=== PATIENT | female | born 1940 | race African-American/Black ===

== ENCOUNTER → 2017-06-12 | Outpatient (CLI) | payer MEDICARE ==
[~2017-06-12] MED LIST: ATOR20TA65 PO; CELE200C PO; FOLI-43 PO; HYDR200T35 PO; METH2.5T PO; RANI300T4 PO; ZOLP5TAB8 PO
== END | disposition home or self-care (01) ==
LOC: MAMMO 07:51
PROVIDERS: ATTEND Internal Medicine Endocrinology, Diabetes & Metabolism
DX: Z12.31 Encounter for screening mammogram for malignant neoplasm of breast (principal)
CPT/HCPCS: G0202

== ENCOUNTER 2017-06-22 18:47 | Emergency (ER) | payer MEDICARE ==
[~2017-06-22] VITALS: Ht 165.1 cm; Wt 84.0 kg
[2017-06-22] MEDS ORDERED: TETRACAINE 0.5% OPHTH DROPS 4ML OP ONE (23:15)
[2017-06-22] MEDS ORDERED: FLUORESCEIN SODIUM 1MG/STRIP OP ONE (23:15)
[2017-06-23] MEDS ORDERED: ACYCLOVIR 400 MG TABLET PO ONE (00:15)
[2017-06-23 00:43] VITALS: BP 131/75
== END 2017-06-23 00:50 | disposition home or self-care (01) ==
LOC: ER 23:21
DX: B02.8 Zoster with other complications (principal); M19.90 Unspecified osteoarthritis, unspecified site; I10 Essential (primary) hypertension; Z90.49 Acquired absence of other specified parts of digestive tract; Z90.710 Acquired absence of both cervix and uterus
CPT/HCPCS: 99284

== ENCOUNTER 2018-10-03 10:18 | Inpatient (IN) | payer MEDICARE ==
[~2018-10-03] VITALS: Ht 165.1 cm; Wt 89.8 kg
[2018-10-03] MEDS ORDERED: NITROGLYCERIN 0.4MG TABLET SL SL PRN ×2 (11:00→17:30)
[2018-10-03] MEDS ORDERED: ASPIRIN 81MG TABLET PO ONE (11:00)
[2018-10-03 11:50] LABS: BASOPHILS % 0.5 % (0.0-2.0); EOSINOPHILS % 4.4 % (0.0-5.0); HEMATOCRIT. 36.4 % (36.0-48.0); HEMOGLOBIN. 11.4 g/dL (12.0-16.0); LYMPHOCYTES % 26.1 % (20.0-50.0); MEAN CORPUSCULAR HEMOGLOBIN 24.4 pg (28.0-32.0); MEAN PLATELET VOLUME 8.9 fl (7.4-10.4); MONOCYTES % 13.1 % (2.0-8.0); NEUTROPHILS % 55.9 % (40.0-76.0); PLATELET 181 x1000/uL (130-400); RED BLOOD CELL COUNT 4.66 mill/uL (4.2-5.4); RED CELL DISTRIBUTION WIDTH 17.8 % (11.6-14.6)
[2018-10-03 11:58] LABS: CHLORIDE 111 mEq/L (98-107)
[2018-10-03 12:30] LABS: D-DIMER 5.63 mg/L FEU (<0.50); INR 1.1; PROTHROMBIN TIME 10.7 sec (9.1-11.1)
[2018-10-03 16:00] VITALS: BP 149/93
[2018-10-03 16:22] VITALS: BP 149/93
[2018-10-03] MEDS ORDERED: COR3 PO (17:11)
[2018-10-03] MEDS ORDERED: ASPI-1159 PO (17:11)
[2018-10-03] MEDS ORDERED: OXYB5SYR2 PO (17:11)
[2018-10-03] MEDS ORDERED: AM10 PO (17:12)
[2018-10-03] MEDS ORDERED: ACETAMINOPHEN 325MG TABLET PO PRN (17:30)
[2018-10-03] MEDS ORDERED: HYDROCODONE/ACETAMINOPHEN 5/325MG TABLET PO PRN (17:30)
[2018-10-03] MEDS ORDERED: CLONIDINE 0.1MG TABLET PO PRN (17:30)
[2018-10-03] MEDS ORDERED: IPRATROPIUM/ALBUTEROL 0.5-3(2.5)MG/3ML NEB INH PRN (17:30)
[2018-10-03] MEDS ORDERED: ONDANSETRON HCL 4MG/2ML INJ IV PRN (17:30)
[2018-10-03] MEDS ORDERED: HYDROMORPHONE HCL/PF 2MG/ML CPJ IV PRN (17:30)
[2018-10-03] MEDS ORDERED: ENOXAPARIN 40MG/0.4ML SYR SUBCUT SCH (18:30)
[2018-10-03] MEDS: METOPROLOL TARTRATE 25MG TABLET PO SCH (19:25)
[2018-10-03 20:46] VITALS: BP 120/72
[2018-10-04 00:12] VITALS: BP 147/80
[2018-10-04 01:07] LABS: CREATINE KINASE 30 IU/L (26-192)
[2018-10-04 01:08] LABS: CREATINE KINASE MB FRACTION < 1.0 ng/mL (0.5-3.6)
[2018-10-04 04:09] VITALS: BP 138/87
[2018-10-04 07:34] LABS: BASOPHILS % 0.8 % (0.0-2.0); EOSINOPHILS % 4.5 % (0.0-5.0); HEMATOCRIT. 37.9 % (36.0-48.0); LYMPHOCYTES % 39.8 % (20.0-50.0); MEAN CORPUSCULAR HEMOGLOBIN 24.6 pg (28.0-32.0); MEAN CORPUSCULAR VOLUME 77.5 fL (81.0-99.0); MEAN PLATELET VOLUME 9.2 fl (7.4-10.4); MONOCYTES % 12.1 % (2.0-8.0); NEUTROPHILS % 42.8 % (40.0-76.0); PLATELET 202 x1000/uL (130-400); RED BLOOD CELL COUNT 4.89 mill/uL (4.2-5.4)
[2018-10-04 07:55] LABS: CHLORIDE 109 mEq/L (98-107)
[2018-10-04 08:19] LABS: LDL CHOLESTEROL 66 mg/dL (5-100)
[2018-10-04 08:21] LABS: CREATINE KINASE 35 IU/L (26-192); CREATINE KINASE MB FRACTION < 1.0 ng/mL (0.5-3.6); HDL CHOLESTEROL 58 mg/dL (40-59)
[2018-10-04 08:22] LABS: T4 FREE 1.49 ng/dL (0.76-1.46)
[2018-10-04] MEDS: METOPROLOL TARTRATE 25MG TABLET PO SCH ×2 (08:33→20:56)
[2018-10-04] MEDS: ASPIRIN 81MG EC TABLET PO SCH (08:33)
[2018-10-04 08:49] VITALS: BP 144/72
[2018-10-04] MEDS: FAMOTIDINE 20MG TABLET PO SCH (11:45)
[2018-10-04] MEDS: CARVEDILOL 3.125 MG TABLET PO SCH ×2 (11:45→20:56)
[2018-10-04] MEDS: CELECOXIB 200MG CAPSULE PO SCH (11:45)
[2018-10-04] MEDS: AMITRIPTYLINE 10MG TABLET PO SCH (11:45)
[2018-10-04 12:00] VITALS: BP 112/65
[2018-10-04 16:00] VITALS: BP 113/64
[2018-10-04 20:00] VITALS: BP 120/72
[2018-10-04] MEDS: ATORVASTATIN CALCIUM 20MG TABLET PO SCH (20:55)
[2018-10-04] MEDS: OXYBUTYNIN CHLORIDE 5MG TABLET PO SCH (20:55)
[2018-10-04] MEDS: ENOXAPARIN 30MG/0.3ML SYR SUBCUT SCH (20:56)
[2018-10-05] VITALS: BP 114/76
[2018-10-05 04:00] VITALS: BP 123/71
[2018-10-05 08:00] VITALS: BP 134/65
[2018-10-05] MEDS: OXYBUTYNIN CHLORIDE 5MG TABLET PO SCH ×2 (08:57→21:21)
[2018-10-05] MEDS: METOPROLOL TARTRATE 25MG TABLET PO SCH ×2 (08:57→21:23)
[2018-10-05] MEDS: FAMOTIDINE 20MG TABLET PO SCH (08:57)
[2018-10-05] MEDS: ASPIRIN 81MG EC TABLET PO SCH (08:57)
[2018-10-05] MEDS: CELECOXIB 200MG CAPSULE PO SCH (08:57)
[2018-10-05] MEDS: AMITRIPTYLINE 10MG TABLET PO SCH (08:58)
[2018-10-05] MEDS: ENOXAPARIN 30MG/0.3ML SYR SUBCUT SCH ×2 (08:58→21:24)
[2018-10-05] MEDS: CARVEDILOL 3.125 MG TABLET PO SCH ×2 (08:58→21:21)
[2018-10-05] MEDS ORDERED: REGADENOSON 0.4 MG/5 ML IV ONE (11:45)
[2018-10-05 12:00] VITALS: BP 104/64
[2018-10-05] MEDS: TRIAMTERENE/HYDROCHLOROTHIAZID 75/50MG TABLET PO SCH (12:41)
[2018-10-05 16:00] VITALS: BP 124/59
[2018-10-05 20:00] VITALS: BP 121/54
[2018-10-05] MEDS: ATORVASTATIN CALCIUM 20MG TABLET PO SCH (21:22)
[2018-10-06] VITALS: BP 113/63
[2018-10-06 04:00] VITALS: BP 121/44
[2018-10-06 07:09] LABS: BASOPHILS % 0.6 % (0.0-2.0); HEMATOCRIT. 34.1 % (36.0-48.0); HEMOGLOBIN. 11.1 g/dL (12.0-16.0); LYMPHOCYTES % 32.4 % (20.0-50.0); MEAN CORPUSCULAR HEMOGLOBIN 25.1 pg (28.0-32.0); MEAN CORPUSCULAR VOLUME 77.2 fL (81.0-99.0); PLATELET 175 x1000/uL (130-400); RED BLOOD CELL COUNT 4.41 mill/uL (4.2-5.4); RED CELL DISTRIBUTION WIDTH 17.6 % (11.6-14.6)
[2018-10-06 07:15] LABS: CHLORIDE 110 mEq/L (98-107)
[2018-10-06 08:00] VITALS: BP 127/62
[2018-10-06] MEDS: CARVEDILOL 3.125 MG TABLET PO SCH (09:30)
[2018-10-06] MEDS: CELECOXIB 200MG CAPSULE PO SCH (09:30)
[2018-10-06] MEDS: ASPIRIN 81MG EC TABLET PO SCH (09:30)
[2018-10-06] MEDS: TRIAMTERENE/HYDROCHLOROTHIAZID 75/50MG TABLET PO SCH (09:30)
[2018-10-06] MEDS: FAMOTIDINE 20MG TABLET PO SCH (09:30)
[2018-10-06] MEDS: OXYBUTYNIN CHLORIDE 5MG TABLET PO SCH ×2 (09:30→20:45)
[2018-10-06] MEDS: AMITRIPTYLINE 10MG TABLET PO SCH (09:31)
[2018-10-06] MEDS: ENOXAPARIN 30MG/0.3ML SYR SUBCUT SCH ×2 (09:31→20:45)
[2018-10-06] MEDS: METOPROLOL TARTRATE 25MG TABLET PO SCH ×2 (09:31→20:46)
[2018-10-06] MEDS ORDERED: REGADENOSON 0.4 MG/5 ML IV ONE (12:12)
[2018-10-06 16:00] VITALS: BP 130/71
[2018-10-06 20:00] VITALS: BP 133/77
[2018-10-06] MEDS: ATORVASTATIN CALCIUM 20MG TABLET PO SCH (20:45)
[2018-10-07] VITALS: BP 101/68
[2018-10-07 04:00] VITALS: BP 136/65
[2018-10-07 07:05] LABS: HEMATOCRIT. 36.8 % (36.0-48.0); HEMOGLOBIN. 11.8 g/dL (12.0-16.0); MEAN CORPUSCULAR HEMOGLOBIN 24.8 pg (28.0-32.0); MEAN CORPUSCULAR VOLUME 77.7 fL (81.0-99.0); MEAN PLATELET VOLUME 8.8 fl (7.4-10.4); PLATELET 180 x1000/uL (130-400); RED BLOOD CELL COUNT 4.74 mill/uL (4.2-5.4); RED CELL DISTRIBUTION WIDTH 17.5 % (11.6-14.6)
[2018-10-07 07:08] LABS: CHLORIDE 110 mEq/L (98-107)
[2018-10-07] MEDS: TRIAMTERENE/HYDROCHLOROTHIAZID 75/50MG TABLET PO SCH (09:00)
[2018-10-07] MEDS: METOPROLOL TARTRATE 25MG TABLET PO SCH (09:00)
[2018-10-07] MEDS: AMITRIPTYLINE 10MG TABLET PO SCH (09:08)
[2018-10-07] MEDS: FAMOTIDINE 20MG TABLET PO SCH (09:09)
[2018-10-07] MEDS: OXYBUTYNIN CHLORIDE 5MG TABLET PO SCH (09:10)
[2018-10-07] MEDS: ASPIRIN 81MG EC TABLET PO SCH (09:10)
[2018-10-07] MEDS: ENOXAPARIN 30MG/0.3ML SYR SUBCUT SCH (09:12)
[2018-10-07] MEDS: CELECOXIB 200MG CAPSULE PO SCH (09:19)
[2018-10-07 09:50] VITALS: BP 101/69
[2018-10-07 12:03] VITALS: BP 95/68
[2018-10-07 15:07] VITALS: BP 121/62
[2018-10-07 15:58] VITALS: BP 121/62
[2018-10-07 16:06] LABS: PLATELET ESTIMATE NORMAL
== END 2018-10-07 16:17 | disposition home or self-care (01) | DRG 206 ==
LOC: ER 10:42 → 6WST 12:54 → EDBEDREQTM 12:56 → EDBEDREQ 12:56 → ENRESERV 13:55
PROVIDERS: ADMIT Hospitalist; ATTEND Hospitalist
DX: M94.0 Chondrocostal junction syndrome [Tietze] (principal); I48.1 Persistent atrial fibrillation; E44.1 Mild protein-calorie malnutrition; R07.89 Other chest pain; I11.0 Hypertensive heart disease with heart failure; E78.5 Hyperlipidemia, unspecified; M19.90 Unspecified osteoarthritis, unspecified site; I50.9 Heart failure, unspecified; I48.2 Chronic atrial fibrillation; Z96.653 Presence of artificial knee joint, bilateral; K21.9 Gastro-esophageal reflux disease without esophagitis; Z79.01 Long term (current) use of anticoagulants; Z90.49 Acquired absence of other specified parts of digestive tract; Z90.710 Acquired absence of both cervix and uterus; Z79.899 Other long term (current) drug therapy; Z86.718 Personal history of other venous thrombosis and embolism; Z68.32 Body mass index [BMI] 32.0-32.9, adult
CPT/HCPCS: 36415; 71045; 78452; 78582; 80048; 80061; 82550; 82553; 83735; 83880; 84439; 84443; 84484; 85379; 93005; 93017; 93306; 93970; 99285; A9500; A9558; J1650; J2785

== ENCOUNTER 2018-11-11 06:50 | Day surgery (SDC) | payer MEDICARE ==
[~2018-11-11] VITALS: Ht 165.1 cm; Wt 86.2 kg
[~2018-11-11 06:50] MED LIST changes: +AM10 PO; +COR3 PO; -HYDR200T35 PO; -METH2.5T PO; +OXYB5SYR2 PO; -ZOLP5TAB8 PO
[2018-11-11] MEDS ORDERED: RIVA20TA MT (07:37)
[2018-11-11] MEDS ORDERED: OMEP40CA34 MT (07:37)
[2018-11-11] MEDS ORDERED: LIDOCAINE HCL 1% 20ML VIAL (Pyxis) INJ ONE (07:38)
[2018-11-11] MEDS ORDERED: IODIXANOL 320MG/ML 100 ML BOTTLE IV ONE (07:38)
[2018-11-11 07:47] LABS: HEMATOCRIT 36.4 % (36.0-48.0); HEMOGLOBIN 11.7 g/dL (12.0-16.0); MEAN CORPUSCULAR HEMOGLOBIN 24.6 pg (28.0-32.0); MEAN CORPUSCULAR VOLUME 76.7 fL (81.0-99.0); PLATELET 189 x1000/uL (130-400); RED BLOOD CELL COUNT 4.74 mill/uL (4.2-5.4); RED CELL DISTRIBUTION WIDTH 18.1 % (11.6-14.6)
[2018-11-11] MEDS ORDERED: ASPIRIN/SOD BICARB/CITRIC ACID 324MG TAB EFF ONE (07:55)
[2018-11-11] MEDS ORDERED: MIDAZOLAM HCL 2 MG/2 ML VIAL ONE (08:07)
[2018-11-11] MEDS ORDERED: FENTANYL CITRATE/PF 50MCG/ML 2ML VIAL ONE (08:07)
[2018-11-11] MEDS ORDERED: ATROPINE SULFATE 1MG/10ML SYR IV PRN (08:45)
[2018-11-11] MEDS ORDERED: ONDANSETRON HCL 4MG/2ML INJ IV PRN (08:45)
[2018-11-11] MEDS ORDERED: MORPHINE SULFATE 4 MG/ML CPJ (NOT FOR IM USE) IV PRN (08:45)
[2018-11-11] MEDS ORDERED: ACETAMINOPHEN 325MG TABLET PO PRN (08:45)
[2018-11-11] MEDS ORDERED: HEPARIN SODIUM 1,000 UNIT/1ML VIAL IV ONE (15:02)
[2018-11-11] MEDS ORDERED: NITROGLYCERIN 50MCG/ML 10ML VIAL (CATH LAB) IV ONE (15:28)
[2018-11-11] MEDS ORDERED: NICARDIPINE 100MCG/ML 10ML VIAL (CATH LAB) IV ONE (15:28)
== END 2018-11-11 13:00 | disposition home or self-care (01) ==
LOC: CCL 06:50
PROVIDERS: ATTEND Specialist
DX: I25.10 Atherosclerotic heart disease of native coronary artery without angina pectoris (principal); I11.0 Hypertensive heart disease with heart failure; I50.9 Heart failure, unspecified; I48.91 Unspecified atrial fibrillation; E78.00 Pure hypercholesterolemia, unspecified; Z90.49 Acquired absence of other specified parts of digestive tract; Z96.653 Presence of artificial knee joint, bilateral; K21.9 Gastro-esophageal reflux disease without esophagitis
CPT/HCPCS: 36415; 85027; 93458; C1769; C1887; C1893; J1644; J2250; J3010; J3490; Q9967

== ENCOUNTER 2024-04-11 22:19 | Inpatient (IN) | payer MEDICARE ==
[~2024-04-11] VITALS: Ht 165.1 cm; Wt 69.4 kg
[2024-04-11 21:15] VITALS: BP 113/54; PULSE 82; RESP 19; TEMP 98.6
[2024-04-11 22:00] VITALS: BP 113/58; PULSE 82; RESP 20; TEMP 98.6
[~2024-04-11 22:19] MED LIST changes: -AM10 PO; -CELE200C PO; -COR3 PO; +COR6 PO; -FOLI-43 PO; +FURO20TA4 MT; +OMEP40CA20 MT; -OXYB5SYR2 PO; +OXYB5SYR6 PO; -RANI300T4 PO; +RIVA20TA MT; +SACU1TAB PO; +SPIR25TA6 PO
[2024-04-11] MEDS ORDERED: HYDROMORPHONE HCL/PF 2MG/ML INJ IV ONE (22:30)
[2024-04-11] MEDS ORDERED: IPRATROPIUM/ALBUTEROL 0.5-3(2.5)MG/3ML NEB HHN PRN (22:30)
[2024-04-11] MEDS ORDERED: ACETAMINOPHEN 325MG TABLET PO PRN (22:30)
[2024-04-11] MEDS ORDERED: MAGNESIUM/ALUMINUM HYDROXIDE/SIMETHICONE 30ML UDC PO PRN (22:30)
[2024-04-11] MEDS ORDERED: HYDROCODONE/ACETAMINOPHEN 5/325MG TABLET PO PRN (22:30)
[2024-04-11] MEDS ORDERED: CLONIDINE 0.1MG TABLET PO PRN (22:30)
[2024-04-11] MEDS ORDERED: NALOXONE HCL 0.4MG/ML 1ML VIAL IV PRN (22:30)
[2024-04-11] MEDS ORDERED: HYDROMORPHONE HCL/PF 2MG/ML INJ IM PRN (22:30)
[2024-04-11] MEDS ORDERED: ONDANSETRON HCL 4MG/2ML INJ IV PRN (22:30)
[2024-04-11] MEDS ORDERED: GUAIFENESIN 200MG/10ML SUGAR FREE UDC PO PRN (22:30)
[2024-04-11] MEDS ORDERED: HYDROMORPHONE HCL/PF 2MG/ML INJ IV PRN (23:15)
[2024-04-12 06:10] LABS: BASOPHILS % 0.5 % (0.0-2.0); EOSINOPHILS % 2.9 % (0.0-5.0); HEMATOCRIT. 24.7 % (36.0-48.0); HEMOGLOBIN. 8.2 g/dL (12.0-16.0); LYMPHOCYTES % 17.7 % (20.0-50.0); MEAN CORPUSCULAR HEMOGLOBIN 28.9 pg (28.0-32.0); MEAN CORPUSCULAR HGB CONC 33.3 g/dL (31.0-37.0); MEAN CORPUSCULAR VOLUME 86.7 fL (81.0-99.0); MEAN PLATELET VOLUME 8.8 fl (7.4-10.4); MONOCYTES % 9.7 % (2.0-8.0); NEUTROPHILS % 69.2 % (40.0-76.0); PLATELET 145 x1000/uL (130-400); RED BLOOD CELL COUNT 2.85 mill/uL (4.2-5.4); RED CELL DISTRIBUTION WIDTH 15.7 % (11.6-14.6); WHITE BLOOD COUNT 6.3 x1000/uL (4.5-11.0)
[2024-04-12 06:16] LABS: CHLORIDE 107 mEq/L (98-107); POTASSIUM 4.3 mEq/L (3.5-5.1); SODIUM 141 mEq/L (136-145)
[2024-04-12 06:17] LABS: CALCIUM 8.3 mg/dL (8.7-10.4); CARBON DIOXIDE 29 mEq/L (21-32)
[2024-04-12 06:22] LABS: CREATININE 0.7 mg/dL (0.6-1.0); GLUCOSE 111 mg/dL (70-105); UREA NITROGEN BLOOD 12 mg/dL (9-23)
[2024-04-12] MEDS: PANTOPRAZOLE 40MG DR TABLET PO SCH (06:23)
[2024-04-12 06:24] LABS: ALANINE AMINOTRANSFERASE 23 IU/L (10-49); ALBUMIN 3.1 g/dL (3.2-4.8); ASPARTATE AMINOTRANSFERASE 39 IU/L (<34); PREALBUMIN 5.6 mg/dl (10.0-40.0); PROTEIN TOTAL 4.9 g/dL (6.0-8.3)
[2024-04-12] MEDS ORDERED: OMEPRAZOLE 20MG CAPSULE EXTENDED RELEASE PO SCH (07:00)
[2024-04-12 08:00] VITALS: BP 149/59; PULSE 70; TEMP 97.4
[2024-04-12] MEDS: OXYBUTYNIN CHLORIDE 5MG TABLET PO SCH (09:13)
[2024-04-12] MEDS: FUROSEMIDE 40MG TABLET PO SCH (09:13)
[2024-04-12] MEDS: ENOXAPARIN 40MG/0.4ML SYR SUBCUT SCH (09:13)
[2024-04-12] MEDS: CARVEDILOL 3.125 MG TABLET PO SCH (09:18)
[2024-04-12] MEDS: NON FORMULARY PATIENT HOME MED XX SCH (09:22)
[2024-04-12 12:00] VITALS: BP 116/49; PULSE 75; RESP 19; TEMP 97.3
[2024-04-12] MEDS: RIVAROXABAN 15 MG TABLET PO SCH (16:01)
[2024-04-12] MEDS: HYDROCODONE/ACETAMINOPHEN 5/325MG TABLET PO PRN (16:02)
[2024-04-12] MEDS: POLYETHYLENE GLYCOL 3350 (17GM) 1 DOSE PACK PO SCH (18:55)
[2024-04-12] MEDS: CYANOCOBALAMIN 1000MCG/ML VIAL IM NR (18:55)
[2024-04-12 20:00] VITALS: BP 123/70; PULSE 90; RESP 18; TEMP 97.5
[2024-04-12] MEDS: ATORVASTATIN CALCIUM 20MG TABLET PO SCH (22:53)
[2024-04-12] MEDS: ENTRESTO PO SCH (22:53)
[2024-04-13 08:00] VITALS: BP 129/53; PULSE 67; RESP 18; TEMP 98.1
[2024-04-13] MEDS: ASCORBIC ACID 500 MG TABLET PO SCH (08:38)
[2024-04-13] MEDS: FERROUS SULFATE 325MG TABLET PO SCH (08:40)
[2024-04-13 09:49] LABS: BASOPHILS % 0.5 % (0.0-2.0); HEMATOCRIT. 25.7 % (36.0-48.0); HEMOGLOBIN. 8.3 g/dL (12.0-16.0); LYMPHOCYTES % 16.2 % (20.0-50.0); MEAN CORPUSCULAR HEMOGLOBIN 28.5 pg (28.0-32.0); MEAN CORPUSCULAR HGB CONC 32.2 g/dL (31.0-37.0); MEAN CORPUSCULAR VOLUME 88.5 fL (81.0-99.0); MEAN PLATELET VOLUME 8.5 fl (7.4-10.4); MONOCYTES % 7.7 % (2.0-8.0); NEUTROPHILS % 72.6 % (40.0-76.0); PLATELET 202 x1000/uL (130-400); RED BLOOD CELL COUNT 2.91 mill/uL (4.2-5.4); RED CELL DISTRIBUTION WIDTH 15.7 % (11.6-14.6); WHITE BLOOD COUNT 5.6 x1000/uL (4.5-11.0)
[2024-04-13 09:54] LABS: CHLORIDE 105 mEq/L (98-107); POTASSIUM 3.9 mEq/L (3.5-5.1); SODIUM 140 mEq/L (136-145)
[2024-04-13 09:55] LABS: CALCIUM 8.9 mg/dL (8.7-10.4); CARBON DIOXIDE 29 mEq/L (21-32)
[2024-04-13 10:00] LABS: CREATININE 0.7 mg/dL (0.6-1.0); GLUCOSE 140 mg/dL (70-105); UREA NITROGEN BLOOD 11 mg/dL (9-23)
[2024-04-13] MEDS: BISACODYL 10MG SUPP PR PRN (12:14)
[2024-04-13 20:00] VITALS: BP 115/52; PULSE 80; RESP 18; TEMP 100
[2024-04-13] MEDS: LACTULOSE 20G/30ML UDC PO SCH (22:22)
[2024-04-14] MEDS: NA PHOS,M-B/NA PHOS,DI-BA ENEMA 118ML PR NR (05:26)
[2024-04-14] MEDS: DOCUSATE SODIUM 100MG CAPSULE PO PRN (06:39)
[2024-04-14] MEDS: ACETAMINOPHEN 325MG TABLET PO PRN (06:57)
[2024-04-14 07:12] LABS: CARBON DIOXIDE 30 mEq/L (21-32); CHLORIDE 105 mEq/L (98-107); POTASSIUM 4.5 mEq/L (3.5-5.1); SODIUM 140 mEq/L (136-145)
[2024-04-14 07:14] LABS: CALCIUM 8.9 mg/dL (8.7-10.4)
[2024-04-14 07:18] LABS: CREATININE 0.6 mg/dL (0.6-1.0); GLUCOSE 98 mg/dL (70-105)
[2024-04-14 07:19] LABS: UREA NITROGEN BLOOD 11 mg/dL (9-23)
[2024-04-14 07:25] LABS: BASOPHILS % 0.3 % (0.0-2.0); EOSINOPHILS % 2.2 % (0.0-5.0); HEMATOCRIT. 26.8 % (36.0-48.0); HEMOGLOBIN. 8.9 g/dL (12.0-16.0); LYMPHOCYTES % 15.9 % (20.0-50.0); MEAN CORPUSCULAR HEMOGLOBIN 29.2 pg (28.0-32.0); MEAN CORPUSCULAR HGB CONC 33.3 g/dL (31.0-37.0); MEAN CORPUSCULAR VOLUME 87.7 fL (81.0-99.0); MEAN PLATELET VOLUME 8.3 fl (7.4-10.4); MONOCYTES % 10.9 % (2.0-8.0); NEUTROPHILS % 70.7 % (40.0-76.0); PLATELET 237 x1000/uL (130-400); RED BLOOD CELL COUNT 3.06 mill/uL (4.2-5.4); RED CELL DISTRIBUTION WIDTH 15.9 % (11.6-14.6); WHITE BLOOD COUNT 7.4 x1000/uL (4.5-11.0)
[2024-04-14 08:00] VITALS: BP 129/67; PULSE 77; RESP 18; TEMP 97.4
[2024-04-14 20:00] VITALS: BP 113/55; PULSE 86; RESP 18; TEMP 98
[2024-04-14] MEDS: ERGOCALCIFEROL 50000UNITS CAPSULE PO SCH (21:54)
[2024-04-15 08:00] VITALS: BP 129/52; PULSE 85; RESP 19; TEMP 97.6
[2024-04-15 20:00] VITALS: BP 140/56; PULSE 82; RESP 18; TEMP 99
[2024-04-16 08:00] VITALS: BP 136/68; PULSE 92; RESP 20; TEMP 98.1
[2024-04-16 08:00] LABS: BASOPHILS % 0.6 % (0.0-2.0); HEMATOCRIT. 27.7 % (36.0-48.0); LYMPHOCYTES % 16.8 % (20.0-50.0); MEAN CORPUSCULAR HEMOGLOBIN 28.8 pg (28.0-32.0); MEAN CORPUSCULAR HGB CONC 32.4 g/dL (31.0-37.0); MEAN CORPUSCULAR VOLUME 88.8 fL (81.0-99.0); MEAN PLATELET VOLUME 7.7 fl (7.4-10.4); MONOCYTES % 10.9 % (2.0-8.0); NEUTROPHILS % 68.7 % (40.0-76.0); PLATELET 339 x1000/uL (130-400); RED BLOOD CELL COUNT 3.12 mill/uL (4.2-5.4); RED CELL DISTRIBUTION WIDTH 16.3 % (11.6-14.6); WHITE BLOOD COUNT 6.5 x1000/uL (4.5-11.0)
[2024-04-16 08:04] LABS: CARBON DIOXIDE 28 mEq/L (21-32); CHLORIDE 106 mEq/L (98-107); POTASSIUM 4.2 mEq/L (3.5-5.1); SODIUM 140 mEq/L (136-145)
[2024-04-16 08:05] LABS: CALCIUM 8.8 mg/dL (8.7-10.4)
[2024-04-16 08:10] LABS: CREATININE 0.6 mg/dL (0.6-1.0); GLUCOSE 107 mg/dL (70-105); UREA NITROGEN BLOOD 12 mg/dL (9-23)
[2024-04-16] MEDS: RIVAROXABAN 20 MG TABLET PO SCH (17:56)
[2024-04-16 20:00] VITALS: BP 118/52; PULSE 76; RESP 19; TEMP 97.3
[2024-04-17 08:00] VITALS: BP 102/49; PULSE 64; RESP 20; TEMP 97.7
[2024-04-17 20:00] VITALS: BP 112/52; PULSE 73; RESP 18; TEMP 98.7
[2024-04-18 08:00] VITALS: BP 123/75; PULSE 76; RESP 18; TEMP 97.6
[2024-04-18] MEDS: FUROSEMIDE 40MG TABLET PO SCH (08:23)
[2024-04-18 20:00] VITALS: BP 110/56; PULSE 73; RESP 18; TEMP 98.4
[2024-04-19 07:36] LABS: CARBON DIOXIDE 27 mEq/L (21-32); CHLORIDE 108 mEq/L (98-107); POTASSIUM 4.2 mEq/L (3.5-5.1); SODIUM 141 mEq/L (136-145)
[2024-04-19 07:37] LABS: CALCIUM 8.7 mg/dL (8.7-10.4)
[2024-04-19 07:41] LABS: CREATININE 0.7 mg/dL (0.6-1.0)
[2024-04-19 07:42] LABS: GLUCOSE 99 mg/dL (70-105); UREA NITROGEN BLOOD 18 mg/dL (9-23)
[2024-04-19 08:00] VITALS: BP 135/72; PULSE 100; RESP 17; TEMP 97.3
[2024-04-19 08:18] LABS: BASOPHILS % 0.4 % (0.0-2.0); EOSINOPHILS % 1.9 % (0.0-5.0); HEMATOCRIT. 26.1 % (36.0-48.0); HEMOGLOBIN. 8.5 g/dL (12.0-16.0); LYMPHOCYTES % 18.2 % (20.0-50.0); MEAN CORPUSCULAR HEMOGLOBIN 28.9 pg (28.0-32.0); MEAN CORPUSCULAR HGB CONC 32.4 g/dL (31.0-37.0); MEAN CORPUSCULAR VOLUME 89.2 fL (81.0-99.0); MEAN PLATELET VOLUME 7.6 fl (7.4-10.4); MONOCYTES % 9.1 % (2.0-8.0); NEUTROPHILS % 70.4 % (40.0-76.0); PLATELET 378 x1000/uL (130-400); RED BLOOD CELL COUNT 2.93 mill/uL (4.2-5.4); RED CELL DISTRIBUTION WIDTH 17.3 % (11.6-14.6); WHITE BLOOD COUNT 6.3 x1000/uL (4.5-11.0)
[2024-04-19] MEDS: FUROSEMIDE 20MG TABLET PO SCH (08:40)
[2024-04-19 20:00] VITALS: BP 114/57; PULSE 98; RESP 18; TEMP 97.4
[2024-04-20 08:00] VITALS: BP 125/49; PULSE 72; RESP 18; TEMP 97.9
[2024-04-20] MEDS ORDERED: IPRATROPIUM/ALBUTEROL 0.5-3(2.5)MG/3ML NEB HHN PRN (14:45)
[2024-04-20 20:00] VITALS: BP 114/37; PULSE 66; RESP 18; TEMP 97.9
[2024-04-21 08:00] VITALS: BP 130/60; PULSE 65; RESP 18; TEMP 97.7
[2024-04-21 20:00] VITALS: BP 114/90; PULSE 72; RESP 18; TEMP 97.8
[2024-04-22 06:47] LABS: BASOPHILS % 0.8 % (0.0-2.0); HEMATOCRIT. 28.7 % (36.0-48.0); LYMPHOCYTES % 16.8 % (20.0-50.0); MEAN CORPUSCULAR HEMOGLOBIN 28.4 pg (28.0-32.0); MEAN CORPUSCULAR HGB CONC 31.4 g/dL (31.0-37.0); MEAN CORPUSCULAR VOLUME 90.6 fL (81.0-99.0); MEAN PLATELET VOLUME 7.4 fl (7.4-10.4); MONOCYTES % 9.3 % (2.0-8.0); NEUTROPHILS % 71.1 % (40.0-76.0); PLATELET 398 x1000/uL (130-400); RED BLOOD CELL COUNT 3.17 mill/uL (4.2-5.4); RED CELL DISTRIBUTION WIDTH 18.2 % (11.6-14.6); WHITE BLOOD COUNT 5.2 x1000/uL (4.5-11.0)
[2024-04-22 06:55] LABS: CARBON DIOXIDE 26 mEq/L (21-32); CHLORIDE 109 mEq/L (98-107); POTASSIUM 4.2 mEq/L (3.5-5.1); SODIUM 141 mEq/L (136-145)
[2024-04-22 06:56] LABS: CALCIUM 8.5 mg/dL (8.7-10.4)
[2024-04-22 07:01] LABS: CREATININE 0.7 mg/dL (0.6-1.0); GLUCOSE 95 mg/dL (70-105); UREA NITROGEN BLOOD 18 mg/dL (9-23)
[2024-04-22 08:00] VITALS: BP 102/53; PULSE 57; RESP 18; TEMP 101.1
[2024-04-22 12:00] VITALS: BP 100/43; PULSE 74; RESP 18; TEMP 98.8
[2024-04-22 16:00] VITALS: BP 99/55; PULSE 78; RESP 20; TEMP 99.6
[2024-04-22 20:00] VITALS: BP 124/54; PULSE 70; RESP 17; TEMP 98.1
[2024-04-23 08:00] VITALS: BP 110/67; PULSE 73; RESP 18; TEMP 98.1
[2024-04-23] MEDS ORDERED: PANT40TA51 PO (15:46)
[2024-04-23] MEDS ORDERED: OXYB5TAB21 PO (15:46)
[2024-04-23] MEDS ORDERED: ESTR42.510 VG (15:46)
[2024-04-23] MEDS ORDERED: FURO20TA4 MT (15:47)
[2024-04-23] MEDS: RIVAROXABAN 15 MG TABLET PO SCH (17:07)
[2024-04-23 20:00] VITALS: BP 110/52; PULSE 75; RESP 18; TEMP 98
[2024-04-24 08:00] VITALS: BP 109/48; PULSE 76; RESP 18; TEMP 97.1
[2024-04-24 20:00] VITALS: BP 106/49; PULSE 67; RESP 18; TEMP 98.2
[2024-04-25 08:00] VITALS: BP 111/51; PULSE 61; RESP 20; TEMP 98.8
[2024-04-25 09:54] VITALS: BP 111/51; PULSE 70; RESP 16; TEMP 98.2
[2024-04-25 20:00] VITALS: BP 116/36; PULSE 60; RESP 18; TEMP 98.4
[2024-04-26 06:53] LABS: CARBON DIOXIDE 28 mEq/L (21-32); CHLORIDE 110 mEq/L (98-107); POTASSIUM 4.5 mEq/L (3.5-5.1); SODIUM 142 mEq/L (136-145)
[2024-04-26 06:56] LABS: BASOPHILS % 0.7 % (0.0-2.0); EOSINOPHILS % 2.3 % (0.0-5.0); HEMATOCRIT. 29.8 % (36.0-48.0); HEMOGLOBIN. 9.7 g/dL (12.0-16.0); LYMPHOCYTES % 27.1 % (20.0-50.0); MEAN CORPUSCULAR HEMOGLOBIN 29.1 pg (28.0-32.0); MEAN CORPUSCULAR HGB CONC 32.5 g/dL (31.0-37.0); MEAN CORPUSCULAR VOLUME 89.6 fL (81.0-99.0); MEAN PLATELET VOLUME 7.7 fl (7.4-10.4); MONOCYTES % 9.3 % (2.0-8.0); NEUTROPHILS % 60.6 % (40.0-76.0); PLATELET 389 x1000/uL (130-400); RED BLOOD CELL COUNT 3.33 mill/uL (4.2-5.4); RED CELL DISTRIBUTION WIDTH 18.2 % (11.6-14.6); WHITE BLOOD COUNT 4.1 x1000/uL (4.5-11.0)
[2024-04-26 06:59] LABS: CREATININE 0.7 mg/dL (0.6-1.0); GLUCOSE 101 mg/dL (70-105); UREA NITROGEN BLOOD 19 mg/dL (9-23)
[2024-04-26 08:00] VITALS: BP 143/61; PULSE 49; PULSE 60; RESP 18; RESP 19; TEMP 98
[2024-04-26 11:04] VITALS: BP 137/56; PULSE 60
[2024-04-26 20:00] VITALS: BP 117/50; PULSE 64; RESP 18; TEMP 98.3
[2024-04-27 08:00] VITALS: BP 124/46; PULSE 64; RESP 20; TEMP 98.1
[2024-04-27 20:00] VITALS: BP 131/46; PULSE 61; RESP 18; TEMP 97.9
[2024-04-28 08:00] VITALS: BP 129/53; PULSE 62; RESP 18; TEMP 97.2
[2024-04-28 11:05] VITALS: PULSE 62
[2024-04-28] MEDS ORDERED: TOPUD PO (13:24)
[2024-04-28] MEDS ORDERED: COR3 PO (13:24)
[2024-04-28] MEDS ORDERED: XAR15 PO (13:24)
== END 2024-04-28 14:30 | disposition home health service (06) | DRG 536 ==
PROVIDERS: ADMIT Physical Medicine & Rehabilitation Spinal Cord Injury Medicine; ATTEND Internal Medicine
DX: S72.141A Displaced intertrochanteric fracture of right femur, initial encounter for closed fracture (principal); I31.39 Other pericardial effusion (noninflammatory); I42.9 Cardiomyopathy, unspecified; I50.22 Chronic systolic (congestive) heart failure; S62.307A Unspecified fracture of fifth metacarpal bone, left hand, initial encounter for closed fracture; I11.0 Hypertensive heart disease with heart failure; I25.10 Atherosclerotic heart disease of native coronary artery without angina pectoris; I48.0 Paroxysmal atrial fibrillation; W18.39XA Other fall on same level, initial encounter; I08.1 Rheumatic disorders of both mitral and tricuspid valves; I27.20 Pulmonary hypertension, unspecified; R26.9 Unspecified abnormalities of gait and mobility; R00.1 Bradycardia, unspecified; F03.90 Unspecified dementia, unspecified severity, without behavioral disturbance, psychotic disturbance, mood disturbance, and anxiety; Z96.653 Presence of artificial knee joint, bilateral; D50.8 Other iron deficiency anemias; M47.892 Other spondylosis, cervical region; R73.9 Hyperglycemia, unspecified; R53.81 Other malaise; S62.397A Other fracture of fifth metacarpal bone, left hand, initial encounter for closed fracture; E55.9 Vitamin D deficiency, unspecified; Z79.01 Long term (current) use of anticoagulants; Y93.89 Activity, other specified; Y92.89 Other specified places as the place of occurrence of the external cause; Y99.8 Other external cause status; Z90.49 Acquired absence of other specified parts of digestive tract
CPT/HCPCS: 36415; 73120; 73551; 80048; 80053; 82306; 84134; 85025; 97110; 97116; 97150; 97162; 97166; 97530; 97535; 97542; A6261; J1650; J3420